=== PATIENT | male | born 1970 | race Caucasian/White ===

== ENCOUNTER 2017-08-19 17:22 | Emergency (ER) | payer OTHER ==
[2017-08-19 19:01] VITALS: BP 178/85
== END 2017-08-19 19:01 | disposition home or self-care (01) ==
LOC: ED 17:22
DX: L25.9 Unspecified contact dermatitis, unspecified cause (principal); L03.116 Cellulitis of left lower limb; L03.115 Cellulitis of right lower limb; I10 Essential (primary) hypertension; E11.9 Type 2 diabetes mellitus without complications; E78.00 Pure hypercholesterolemia, unspecified; Z79.84 Long term (current) use of oral hypoglycemic drugs; Z79.4 Long term (current) use of insulin
CPT/HCPCS: J1200